=== PATIENT | female | born 1935 | race Caucasian/White ===

== ENCOUNTER 2025-03-11 08:28 | Day surgery (SDC) | payer MEDICARE ==
[~2025-03-11] VITALS: Ht 154.9 cm; Wt 55.6 kg
[~2025-03-11 08:28] MED LIST: PANT40 PO
[2025-03-11] MEDS ORDERED: ESCITALOPRAM OXA5 MG (09:13)
== END 2025-03-11 10:55 | disposition home or self-care (01) ==
LOC: ORSCSDS 08:28
PROVIDERS: Internal Medicine Gastroenterology
PROC: 0DB68ZX Excision of Stomach, Via Natural or Artificial Opening Endoscopic, Diagnostic (ICD-10-PCS; principal; 2025-03-11 10:00)
DX: R13.10 Dysphagia, unspecified (principal); K44.9 Diaphragmatic hernia without obstruction or gangrene; R11.10 Vomiting, unspecified
CPT/HCPCS: 88304; 88342; J2704; J7120